=== PATIENT | male | born 1975 | race American Indian/Alaskan Native ===

== ENCOUNTER 2016-08-27 06:20 | Emergency (ER) | payer OTHER ==
[2016-08-27 06:33] VITALS: BP 129/79; PULSE 70; RESP 18; TEMP 97.8; O2SAT 100
[2016-08-27] MEDS ORDERED: Tetanus/Diphtheria Toxoids 0.5 ml Syringe IM ONE ×2 (07:15→07:25)
--- NOTE | 2016-08-27 07:29 | C.PDOC ---
History Of Present Illness Patient is a 41 y/o male that presents to the ED for evaluation of laceration to his right index finger. Patient states that he cut his right index finger by a broken bottle. Otherwise, denies any change in sensation, weakness, or any other injury at this time. Chief Complaint (Nursing): Upper Extremity Problem/Injury History Per: Patient History/Exam Limitations: no limitations Onset/Duration Of Symptoms: Hrs Current Symptoms Are (Timing): Still Present Quality: "Pain" Exacerbating Factor(s): Nothing Recent travel outside of the [place]: No Additional History Per: Patient Past Medical History Reviewed: Historical Data, Nursing Documentation, Vital Signs Vital Signs: Last Vital Signs Temp 97.8 F 08/27/16 06:28 Pulse 70 08/27/16 06:28 Resp 18 08/27/16 06:28 BP 129/79 08/27/16 06:28 Pulse Ox 100 08/27/16 11:58 Family History: States: Unknown Family Hx - Social History Hx Alcohol Use: No Hx Substance Use: Yes - Immunization History Hx Tetanus Toxoid Vaccination: No Hx Influenza Vaccination: No Hx Pneumococcal Vaccination: No Review Of Systems Except As Marked, All Systems Reviewed And Found Negative. Constitutional: Negative for: Fever, Chills Skin: Positive for: Other (right index finger laceration) Neurological: Negative for: Weakness, Numbness Physical Exam - Physical Exam Appears: Non-toxic, No Acute Distress Skin: Warm, Dry, Other (Right index finger: 2cm of superficial laceration to ulnar aspect of mid phalanx) Head: Atraumatic, Normacephalic Eye(s): bilateral: Normal Inspection, EOMI Nose: Normal Neck: Normal ROM, Supple Chest: Symmetrical Respiratory: No Accessory Muscle Use Extremity: Normal ROM, No Tenderness, Capillary Refill (< 2 sec.), No Deformity , No Swelling Pulses: Left Radial: Normal, Right Radial: Normal Neurological/Psych: Oriented x3, Normal Speech, Normal Motor, Normal Sensation ED Course And Treatment O2 Sat by Pulse Oximetry: 100 (on RA) Pulse Ox Interpretation: Normal Progress Note: Discussed suture vs glue, pt requests glue. Discussed wound care. Injured area was irrigiated. Surgical glue, and steri strips applied. Finger splint was applied by civil design technician and checked by me. Patient was given Tetanus vaccination. Patient is being discharged home with instructions to follow up with PMD. Patient was instructed to keep area clean and dry. Disposition - Disposition Disposition: HOME/ ROUTINE Disposition Time: 07:25 Condition: STABLE Additional Instructions: Keep area clean and dry. Steri strips will peel off on their own. Watch for signs of infection including redness, swelling and discharge. Return to ER right away if you notice any increased in pain or change in color. Instructions: Finger Laceration (ED) - Clinical Impression Clinical Impression: Finger laceration - PA / PRODUCTION WELDER / Resident Statement MD/DO has reviewed & agrees with the documentation as recorded. - Scribe Statement The provider has reviewed the documentation as recorded by the Scribe Hero Wells All medical record entries made by the Asha were at my direction and personally dictated by me. I have reviewed the chart and agree that the record accurately reflects my personal performance of the history, physical exam, medical decision making, and the department course for this patient. I have also personally directed, reviewed, and agree with the discharge instructions and disposition.
== END 2016-08-27 07:46 | disposition home or self-care (01) ==
LOC: C.ER 06:20
DX: S61.210A Laceration without foreign body of right index finger without damage to nail, initial encounter (principal); W25.XXXA Contact with sharp glass, initial encounter; Y93.89 Activity, other specified; Y92.9 Unspecified place or not applicable

== ENCOUNTER 2016-10-20 02:48 | Emergency (ER) | payer OTHER ==
[2016-10-20 02:56] VITALS: BP 124/76; PULSE 64; RESP 14; TEMP 97.8; O2SAT 97
--- NOTE | 2016-10-20 03:24 | C.PDOC ---
History Of Present Illness 41 year old male who presents to the ER with a complaint of swelling to the left upper eyebrow area. Patient is unsure of onset and reports minimal pain to the area. Denies trauma, headache, or visual complaints. Time Seen by Provider: 10/20/16 03:07 Chief Complaint (Nursing): Eye Problem History Per: Patient History/Exam Limitations: no limitations Onset/Duration Of Symptoms: Unknown Current Symptoms Are (Timing): Still Present Injury To Eye?: No Associated Symptoms: Swelling. denies: Pain, Decreased Vision, FB Sensation, Itching, Discharge From Eye Recent travel outside of the [place]: No Past Medical History Reviewed: Historical Data, Nursing Documentation, Vital Signs Vital Signs: Last Vital Signs Temp 97.8 F 10/20/16 02:54 Pulse 64 10/20/16 02:54 Resp 14 10/20/16 02:54 BP 124/76 10/20/16 02:54 Pulse Ox 97 10/20/16 05:14 - Medical History PMH: No Chronic Diseases Surgical History: No Surg Hx Family History: States: Unknown Family Hx - Social History Hx Alcohol Use: No Hx Substance Use: Yes - Immunization History Hx Tetanus Toxoid Vaccination: No Hx Influenza Vaccination: No Hx Pneumococcal Vaccination: No Review Of Systems Constitutional: Negative for: Fever, Chills Eyes: Negative for: Vision Change Skin: Positive for: Other (Swelling) Neurological: Negative for: Headache Physical Exam - Physical Exam Appears: Non-toxic, No Acute Distress Skin: Normal Color, Warm, Dry Head: Atraumatic, Normacephalic, Other (Small indurated mass to mid left eyebrow with appearing old healing excoriation to the area. No open wounds, fluctuance, warmth, or draining.) Eye(s): bilateral: Normal Inspection, PERRL, EOMI Oral Mucosa: Moist Neck: Normal, Supple Neurological/Psych: Oriented x3, Normal Speech, Normal Cognition ED Course And Treatment O2 Sat by Pulse Oximetry: 97 (Room air) Pulse Ox Interpretation: Normal Progress Note: Small hematoma vs cyst. No acute abscess at this time. Rx for antibiotics given prophylactically, patient instructed to apply warm compress and to follow up with PMD. Disposition Counseled Patient/Family Regarding: Diagnosis, Need For Followup, Rx Given - Disposition Referrals: [facility] [Outside] Disposition: HOME/ ROUTINE Disposition Time: 03:20 Condition: STABLE Additional Instructions: Please follow up in clinic Apply warm compress Return to ER if worse Prescriptions: Cephalexin [cephalexin] 500 mg PO Q6 #20 cap Instructions: Cyst (ED) Forms: [facility] ([facility]ami) - Clinical Impression Clinical Impression: Lump on face - Scribe Statement The provider has reviewed the documentation as recorded by the Scribe Vinny Mercado All medical record entries made by the Scribe were at my direction and personally dictated by me. I have reviewed the chart and agree that the record accurately reflects my personal performance of the history, physical exam, medical decision making, and the department course for this patient. I have also personally directed, reviewed, and agree with the discharge instructions and disposition.
== END 2016-10-20 03:46 | disposition home or self-care (01) ==
LOC: C.ER 02:48
DX: R22.0 Localized swelling, mass and lump, head (principal)